=== PATIENT | female | born 1945 | race Caucasian/White ===

== ENCOUNTER 2020-04-14 07:35 | Outpatient (REF) | payer MEDICARE, SELFPAY ==
--- NOTE | 2020-04-14 07:41 | MM_ITS ---
EXAMINATION: MM DIAGNOSTIC DIGITAL BREAST TOMOSYNTHESIS, LEFT Targeted left breast ultrasound CLINICAL INFORMATION: Left breast pain at 2:00 The lifetime risk of breast cancer based on the Tyrer-Cuzick Model is 3.9%. COMPARISON: Mammography: September 18, 2019 and studies dating back to August 31, 2011 TECHNIQUE: Digital breast tomosynthesis is performed in both the craniocaudal and mediolateral oblique views along with computer-aided detection (CAD). Synthesized 2D images are generated from the tomosynthesis. Targeted left breast ultrasound FINDINGS: There are scattered areas of fibroglandular density (ACR BI-RADS breast composition Category b). There are no significant masses, abnormal calcifications, or other abnormalities. Targeted left breast ultrasound to region of pain was then performed. No abnormal cystic or solid mass was identified. No region of distal sound shadowing is seen. No edematous change within the skin is noted. Results are discussed with the patient at time of visit. MM/MM tomosynthesis diagnostic LT IMPRESSION: There are no significant changes from prior study. ASSESSMENT: BI-RADS 1: Negative RECOMMENDATION: Routine annual mammography screening, due in 6 months. Clinical follow-up for left breast pain. This patient's information was entered into a reminder system with a target due date for their next mammogram.
--- NOTE | 2020-04-14 07:42 | US_ITS ---
EXAMINATION: US DIAGNOSTIC ULTRASOUND BREAST, LEFT CLINICAL INFORMATION: Left breast pain 2:00 position. COMPARISON: Mammography of same day and mammography dating back to August 31, 2011. TECHNIQUE: Ultrasound of the breast is performed with real-time morrissey scale imaging and color Doppler. FINDINGS: Targeted left breast ultrasound to region of pain was then performed. No abnormal cystic or solid mass was identified. No region of distal sound shadowing is seen. No edematous change within the skin is noted. Results are discussed with the patient at time of visit. US/US breast LT limited IMPRESSION: There are no significant changes from prior study. ASSESSMENT: BI-RADS 1: Negative RECOMMENDATION: Routine annual mammography screening, due in 6 months. Clinical follow-up for left breast pain.
== END 2020-04-14 07:36 | disposition home or self-care (01) ==
LOC: HO.MAMMO 07:35
PROVIDERS: PCP Internal Medicine; Visit Provider Internal Medicine
DX: N64.4 Mastodynia (principal)
CPT/HCPCS: 76642; 77061; 77065

== ENCOUNTER 2020-12-13 08:30 | Day surgery (SDC) | payer MEDICARE, SELFPAY ==
[2020-12-08 10:15] VITALS: BMI 41.2
--- NOTE | 2020-12-13 08:24 | HO.ANESPROP2 ---
[facility] Past Medical History Medical History (Updated 12/08/20 @ 10:10 by Chantal Gonzalez RN) Depression Elevated cholesterol GERD (gastroesophageal reflux disease) HTN (hypertension) Large cell lymphoma Psoriatic arthritis Sleep apnea Status post insertion of nerve stimulator Uterine cancer Family History Family history of problems with anesthesia: No Surgical History Surgical History (Updated 12/08/20 @ 10:11 by Chantal Gonzalez RN) H/O colonoscopy History of bunionectomy History of esophagogastroduodenoscopy (EGD) History of pubovaginal sling Hx of hysterectomy Hx of lumbar discectomy History of Problems with Anesthesia: No Social History Social History Advance Directives: No Advance Directives Information Provided: Yes Meds Allergies Allergy/AdvReac Type Severity Reaction Status Date / Time adhesive tape [ADHESIVE TAPE] Allergy Intermediate BLISTERS Verified 12/13/20 08:46 ampicillin [Ampicillin] Allergy Mild HIVES Verified 12/13/20 08:46 Home Medications Medication Instructions Recorded Confirmed Last Taken Type amlodipine 10 mg tablet 1 tab PO DAILY 12/08/20 12/08/20 Unknown History aspirin 81 mg tablet,delayed 81 mg PO DAILY 12/08/20 12/08/20 Unknown History release bupropion HCl 150 mg 24 hr tablet, 1 tab PO QAM 12/08/20 12/08/20 Unknown History extended release chlorthalidone 25 mg tablet 1 tab PO DAILY 12/08/20 12/08/20 Unknown History folic acid 1 mg tablet 1 mg PO DAILY 12/08/20 12/08/20 Unknown History irbesartan 75 mg tablet 1 tab PO DAILY 12/08/20 12/08/20 Unknown History leucovorin calcium 10 mg tablet 1 tab PO DAILY 12/08/20 12/08/20 Unknown History methotrexate sodium 2.5 mg tablet 15 mg PO QWEEK 12/08/20 12/08/20 Unknown History metoprolol succinate 50 mg tab PO 12/08/20 Unknown History tablet,extended release 24 hr pravastatin 40 mg tablet 1 tab PO DAILY 12/08/20 12/08/20 Unknown History sulfasalazine 500 mg tablet 1 tab PO DAILY 12/08/20 12/08/20 Unknown History Exam Exam Date and Time: December 13, 2020 0824 Height,Weight and Vital Signs: Height 5 ft 2.5 in Weight 103.873 kg Airway Mallampati Class: III (Caps laterally) TM Dist: >3cm Neck ROM: Full Heart: rrr Lungs: cta Assessment and Plan Assessment Anesthesia Assessment: Anesthesia Plan Discussed and Chart Reviewed Final Anesthetic Review Family History of Problems with Anesthesia: No History of Problems with Anesthesia: No NPO: Yes ASA Class: III Final Preanesthetic Review: No Changes in Pt Med Stat, Meds/Allgs Chart Reviewed and Consent Obtained/Reviewed Patient Risk: Intermediate Procedure Risk: Intermediate Anesthetic Plan Anesthetic Plan: MAC: Disposition: Standard PACU
[2020-12-13] MEDS: Lactated Ringers 1,000 ML 50 ML IVCONT (09:00)
[2020-12-13 09:01] VITALS: BP 147/69; PULSE 58; RESP 18; TEMP 36.1; O2SAT 97; BMI 41.2
[2020-12-13 10:25] VITALS: BP 109/56; PULSE 64; RESP 14; TEMP 36.2; O2SAT 98
--- NOTE | 2020-12-13 10:26 | P.BOP_ITS ---
Brief Operative Note Date of Service: 12/13/20 Pre-op diagnosis: Screening Post-op diagnosis: other (Diverticulosis) Procedure: Colonoscopy to the cecum Surgeon: Orlando Fajardo Anesthesia: MAC Was an Rooming House Keeper used for this Procedure?: No Estimated blood loss (mL): 0 Pathology: none sent Condition: stable Disposition: PACU
--- NOTE | 2020-12-13 10:37 | OP_ITS ---
SURGEON: Orlando Fajardo MD INDICATIONS: The patient presents for evaluation of colorectal cancer screening, personal history of tubular adenoma of the colon, and family history of colon cancer. Full consent has been obtained from her for this, including risks of bleeding and perforation. PREOPERATIVE DIAGNOSIS: POSTOPERATIVE DIAGNOSIS: PROCEDURE PERFORMED: Colonoscopy to cecum. ESTIMATED BLOOD LOSS: COMPLICATIONS: ANESTHESIA: Monitored anesthesia care. ASSISTANTS: SPECIMENS: PREOPERATIVE DIAGNOSES: Colorectal cancer screening and personal history of tubular adenoma of the colon, family history of colon cancer. POSTOPERATIVE DIAGNOSES: Colorectal cancer screening and personal history of tubular adenoma of the colon, family history of colon cancer, diverticulosis and internal hemorrhoids. DESCRIPTION OF PROCEDURE: The patient was placed in the left lateral decubitus position. The digital rectal exam revealed no abnormalities. The Olympus video pediatric colonoscope was entered into the rectum and advanced to the cecum with the assistance of abdominal wall pressure. Once in the cecum, I did identify normal-appearing cecal pouch with appendiceal orifice and a normal-appearing ileocecal valve. The entire cecum and ileocecal valve appeared normal. The scope was then slowly withdrawn assessing all mucosal surfaces carefully. Preparation was excellent. I did not visualize any sign of polyps, colitis, nor angiodysplasia. There was a mild amount of sigmoid diverticulosis. In the rectum, scope was retroflexed visualizing small internal hemorrhoids, but no other pathology. The rectal mucosa appeared normal. The scope was straightened out and withdrawn from the patient. She tolerated the procedure well and was returned to the recovery area in stable condition. IMPRESSION: 1. Diverticulosis. 2. Internal hemorrhoids. PLAN: The patient was advised that she could resume aspirin today. At this point given her age, this negative exam, a negative colonoscopy in 2016, and findings on her previous colonoscopies, I do not think she will need any further colonoscopies from a screening standpoint in the future. She will see me on a p.r.n. basis. This has been discussed with her . MD MARGY Chauhan/ALBA / [id number]
[2020-12-13 10:39] VITALS: BP 131/58; PULSE 65; RESP 16; O2SAT 95
== END 2020-12-13 11:27 | disposition home or self-care (01) ==
PROVIDERS: PCP Internal Medicine; Visit Provider Internal Medicine
PROC: 0DJD8ZZ Inspection of Lower Intestinal Tract, Via Natural or Artificial Opening Endoscopic (ICD-10-PCS; CPT 45378; principal; 2020-12-13 10:10)
DX: Z12.11 Encounter for screening for malignant neoplasm of colon (principal); Z86.010 Personal history of colon polyps; Z80.0 Family history of malignant neoplasm of digestive organs; K57.30 Diverticulosis of large intestine without perforation or abscess without bleeding; K64.8 Other hemorrhoids; K59.00 Constipation, unspecified; K21.9 Gastro-esophageal reflux disease without esophagitis; I10 Essential (primary) hypertension; L40.50 Arthropathic psoriasis, unspecified; G47.30 Sleep apnea, unspecified; C83.30 Diffuse large B-cell lymphoma, unspecified site; Z85.42 Personal history of malignant neoplasm of other parts of uterus; Z92.3 Personal history of irradiation; Z92.21 Personal history of antineoplastic chemotherapy; Z79.82 Long term (current) use of aspirin; Z79.899 Other long term (current) drug therapy; Z88.0 Allergy status to penicillin
CPT/HCPCS: G0105

== ENCOUNTER 2021-04-25 10:55 | Outpatient (REF) | payer MEDICARE, SELFPAY ==
--- NOTE | ~2021-04-25 | MM_ITS ---
EXAMINATION: MM SCREENING DIGITAL BREAST TOMOSYNTHESIS, BILATERAL CLINICAL INFORMATION: Screening. Asymptomatic. The lifetime risk of breast cancer based on the Tyrer-Cuzick Model is 4%. COMPARISON: Mammography: 04/14/2020, 09/18/2019, 06/07/2018, 06/05/2017 TECHNIQUE: Digital breast tomosynthesis is performed in both the craniocaudal and mediolateral oblique views along with computer-aided detection (CAD). Synthesized 2D images are generated from the tomosynthesis. FINDINGS: There are scattered areas of fibroglandular density (ACR BI-RADS breast composition Category b). There are no significant masses, abnormal calcifications, or other abnormalities. Parenchymal pattern is similar to prior studies. There is no developing density or architectural abnormality. The axilla and skin contours are unremarkable. No significant changes. MM/MM tomosynthesis screening BI IMPRESSION: No mammographic evidence of malignancy. ASSESSMENT: BI-RADS 1: Negative RECOMMENDATION: Routine annual mammography screening. This patient's information was entered into a reminder system with a target due date for their next mammogram.
== END 2021-04-25 10:56 | disposition home or self-care (01) ==
LOC: HO.MAMMO 10:55
PROVIDERS: Visit Provider Internal Medicine
DX: Z12.31 Encounter for screening mammogram for malignant neoplasm of breast (principal)
CPT/HCPCS: 77063; 77067

== ENCOUNTER 2022-05-08 11:04 | Outpatient (REF) | payer MEDICARE, SELFPAY ==
--- NOTE | ~2022-05-08 | MM_ITS ---
EXAMINATION: MM SCREENING DIGITAL BREAST TOMOSYNTHESIS, BILATERAL CLINICAL INFORMATION: Screening. Asymptomatic. The lifetime risk of breast cancer based on the Tyrer-Cuzick Model is 3.6%. COMPARISON: Mammography: April 25, 2021 and studies dating back to January 14, 2016 TECHNIQUE: Digital breast tomosynthesis is performed in both the craniocaudal and mediolateral oblique views along with computer-aided detection (CAD). Synthesized 2D images are generated from the tomosynthesis. FINDINGS: There are scattered areas of fibroglandular density (ACR BI-RADS breast composition Category b). There are no significant masses, abnormal calcifications, or other abnormalities. MM/MM tomosynthesis screening BI IMPRESSION: No significant changes from prior exam. ASSESSMENT: BI-RADS 1: Negative RECOMMENDATION: Routine annual mammography screening. This patient's information was entered into a reminder system with a target due date for their next mammogram.
== END 2022-05-08 11:05 | disposition home or self-care (01) ==
LOC: HO.MAMMO 11:04
PROVIDERS: PCP Internal Medicine; Visit Provider Internal Medicine
DX: Z12.31 Encounter for screening mammogram for malignant neoplasm of breast (principal)
CPT/HCPCS: 77063; 77067

== ENCOUNTER 2022-08-24 10:45 | Outpatient (REF) | payer MEDICARE, SELFPAY ==
--- NOTE | ~2022-08-24 | MM_ITS ---
EXAMINATION: BONE DENSITOMETRY CLINICAL INDICATION: Osteoporosis. Osteopenia. COMPARISON: Previous BD dated 09/18/2019 and baseline BD dated 12/29/2014. TECHNIQUE: Using a ClearContext DXA System (software version: 13.1) manufactured by [employer], dual-energy x-ray absorptiometry was performed of the lumbar spine and left hip. The images are of good technical quality. Summary results are attached. FINDINGS: AP SPINE L1-L4: Current: BMD 1.468 g/cm2, Z-score 3.1, T-score 2.4, normal, 2.2% increase from previous, 6.8% increase from baseline (<5% change is not significant). Prior: BMD 1.436 g/cm2. Baseline: BMD 1.374 g/cm2. LEFT FEMUR, NECK: Current: BMD 0.905 g/cm2, Z-score 0.3, T-score -1.0, normal. Prior: BMD 0.958 g/cm2. Baseline: BMD 0.927 g/cm2. LEFT FEMUR, TOTAL: Current: BMD 1.161 g/cm2, Z-score 2.2, T-score 1.2, normal, 0.9% increase from previous, 5.1% decrease from baseline (<5% change is not significant). Prior: BMD 1.151 g/cm2. Baseline: BMD 1.224 g/cm2. IDENTIFIED RISK FACTORS: History adult fracture. Osteoporosis. Height loss. Menopause. Hysterectomy. Bilateral oophorectomy. HISTORY OF FRACTURE: Lower leg. MEDICATIONS: Calcium supplement and/or multivitamin. Vitamin D. MM/XR DEXA axial skeleton IMPRESSION: 1. DIAGNOSIS: Normal bone density based on the lowest T-score value of -1.0 in the femoral neck applying World Health Organization criteria. 2. 10-YEAR FRACTURE RISK PREDICTION, FRAX: According to the guidelines, FRAX calculation should only be performed on patients in the osteopenia bone density category.?Therefore, FRAX was not performed on this patient.? 3. Treatment Recommendations: NOF guidelines recommend consideration for treatment in postmenopausal women and men age 50 and older presenting with the following: -A hip or vertebral (clinical or morphometric) fracture. -T-score less than or equal to -2.5 at the femoral neck or spine after appropriate evaluation to exclude secondary causes. -Low bone mass at the hip or spine and a 10-year fracture probability by FRAX of greater than or equal to 3% for hip fracture or greater than or equal to 20% for major osteoporotic fracture based on the [place] adapted WHO algorithm. 4. Other Recommendations: All treatment decisions require clinical judgment and consideration of individual patient factors, including patient preferences, comorbidities, previous drug use, risk factors not captured in the FRAX model (e.g. frailty, falls, vitamin D deficiency, increased bone turnover, interval significant decline in bone density) and possible under or overestimation of fracture risk by FRAX. FUTURE SCAN RECOMMENDATION: People with diagnosed cases of osteoporosis or at high risk for fracture should have regular bone mineral density tests. For patients eligible for Medicare, routine testing is allowed once every 2 years. The testing frequency can be increased to one year for patients who have rapidly progressing disease, those who are receiving or discontinuing medical therapy to restore bone mass, or have additional risk factors.
== END 2022-08-24 10:46 | disposition home or self-care (01) ==
LOC: HO.MAMMO 10:45
PROVIDERS: PCP Internal Medicine; Visit Provider Internal Medicine
DX: Z13.820 Encounter for screening for osteoporosis (principal); Z78.0 Asymptomatic menopausal state
CPT/HCPCS: 77080

== ENCOUNTER 2023-05-09 11:46 | Outpatient (REF) | payer MEDICARE, SELFPAY ==
--- NOTE | ~2023-05-09 | MM_ITS ---
EXAMINATION: MM SCREENING DIGITAL BREAST TOMOSYNTHESIS, BILATERAL CLINICAL INFORMATION: Screening. Asymptomatic. COMPARISON: Mammography: This study is compared with prior exams dating back to to 2019. TECHNIQUE: Digital breast tomosynthesis is performed in both the craniocaudal and mediolateral oblique views along with computer-aided detection (CAD). Synthesized 2D images are generated from the tomosynthesis. FINDINGS: There are scattered areas of fibroglandular density (ACR BI-RADS breast composition Category b). There are no significant masses, abnormal calcifications, or other abnormalities. MM/MM tomosynthesis screening BI IMPRESSION: No mammographic evidence of malignancy. ASSESSMENT: BI-RADS BI-RADS 1 - Negative RECOMMENDATION: Routine annual mammography screening. 1 year F/U This examination should not preclude the clinical evaluation of a suspicious palpable abnormality. This patient's information was entered into a reminder system with a target due date for their next mammogram.
== END 2023-05-09 11:47 | disposition home or self-care (01) ==
LOC: HO.MAMMO 11:46
PROVIDERS: PCP Internal Medicine; Visit Provider Internal Medicine
DX: Z12.31 Encounter for screening mammogram for malignant neoplasm of breast (principal)
CPT/HCPCS: 77063; 77067

== ENCOUNTER → 2023-05-09 12:00 | Outpatient (BNV) | payer MEDICARE, SELFPAY | PROVIDERS: PCP Internal Medicine; Visit Provider Radiology Diagnostic Radiology | DX: Z12.31 Encounter for screening mammogram for malignant neoplasm of breast (principal) | CPT/HCPCS: 77063; 77067 ==

== ENCOUNTER 2024-05-15 13:38 | Outpatient (REF) | payer MEDICARE, SELFPAY ==
--- OUTSIDE RECORDS SUMMARY | 2024-05-15 16:35 | XMS_ITS | Encounter Summary ---
Author Organization [facility] Address [address] [place] [address] Care Team Providers Care Wildlife Management Professor Name Role Phone Shade Lafleur DO Primary Care Provider [phone] Reason for Visit * Imaging (Routine) - Closed Specialty Diagnoses / Procedures Referred By Yoni mena Referred To Contact Cardiology Diagnoses Palpitations Aortic ectasia, unspecified site (CMS/HCC) Procedures Transthoracic echocardiogram (TTE) complete with PRN contrast, bubble, strain, and 3D order panel WV TTE W 2D IMAGE COMPLETE W DOPPLER ECHO & COLOR FLOW DOPPLER ECHO WV DELIFNA 2D COMPLETE W/CONTRAST OR W & WO CONTRAST WITH DOPPLER Shade Lafleur DO [address] [place] [phone] Phone: tel: fax: [facility] Referral ID Status Reason Start Date Expiration Date Visits Re quested Visits Authorized [id number] Closed 02/20/2024 02/19/2025 1 1 Encounter Details Date Type Department Care Team (Latest Contact Info) Description 05/08/2024 10:00 AM EST Ancillary Procedure [facility] [address] [place] [address] [place] [id number] Palpitations; Aortic ectasia, unspecified site (CMS/HCC) Social History Tobacco Use Types Packs/Day Years Used Date Smoking Tobacco: Never Smokeless Tobacco: Never Alcohol Use Standard Drinks/Week Comments No 0 (1 standard drink = 0.6 oz pur e alcohol) Comments Unknown Sex and Gender Information Value Date Recorded Sex Assigned at Not on file Legal Sex Female 5:59 PM EST Gender Identity Not on file Sexual Orientation Not on file documented as of this encounter Last Filed Vital Signs Vital Sign Reading Time Taken Comments Blood Pressure 124/70 05/08/2024 9:47 AM EST Pulse - - Temperature - - Respiratory Rate - - Oxygen Saturation - - Inhaled Oxygen Concentration - - Weight 97.1 kg (214 lb) 05/08/2024 9:47 AM EST Height 160 cm (5' 3 ) 05/08/2024 9:47 AM EST Body Mass Index 37.91 05/08/2024 9:47 AM EST documented in this encounter Plan of Treatment Pending Results Name Type Priority Associated Diagnoses Date/Time Transthoracic echocardiogram (TTE) complete with PRN contrast, bubble, strain, and 3D order panel Echocardiography Routine Palpitations Aortic ectasia, unspecified site ([facility]/HCC) 05/08/2024 10:34 AM EST documented as of this encounter Visit Diagnoses Diagnosis Palpitations Aortic ectasia, unspecified site ([facility]) Aortic ectasia, unspecified site documented in this encounter Care Teams Wildlife Management Professor Relationship Specialty Start Date End Date Shade Lafleur DO [address] [place] [phone] PCP - General Internal Medicine 03/26/20 documented as of this encounter
--- OUTSIDE RECORDS SUMMARY | 2024-05-15 16:35 | XMS_ITS | Continuity of Care Document ---
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 Role Phone Shade Lafleur DO Primary Care Physician Encounter 05/05/24 - 05/12/24 [facility] [address], [address] [place] [address]- Attending Physician: Adeola Lorenzana DO Admitting Physician: Adeola Lorenzana DO Referring Physician: Adeola Lorenzana DO Encounter Type: OutPatient One Time Allergies, Adverse Reactions, Alerts Substance Criticality Severity Reaction Reaction Severity Status ampicillin High criticality Moderate Ac tive Medications buPROPion 150 mg/24 hours (XL) oral tablet, extended release 1 tablet = 150 mg, By Mouth, Every 24 hours, # 30 tablet, 0 Refills, Maintenance, 11/19/23 1:15:00 PMEDT, ER Tablet, Partial fill upon patient request if the prescription is for a schedule II opioid drug. Start Date: 11/19/23 Status: Ordered Quantity: 30.0 Unit: tablet Repeat number: 1 Ezetimibe = 10 mg, By Mouth, Daily, 0 Refills, Maintenance, 05/07/24 10:01:00 AM EST, Partial fill upon patient request if the prescription is for a schedule II opioid drug. Start Date: 05/07/24 Status: Ordered Repeat number: 1 irbesartan 300 mg oral tablet 1 tablet = 300 mg, By Mouth, Daily, # 30 tablet, 0 Refills, Maintenance, 11/19/23 1:16:00 PM EDT, Tablet, Partial fill upon patient request if the prescription is for a schedule II opioid drug. Start Date: 11/19/23 Status: Ordered Quantity: 30.0 Unit: tablet Repeat number: 1 ketoconazole 2% topical cream 1 application, Topically, 2 times a day, # 60 Gm, 0 Refills, Maintenance, 05/07/24 10:01:00 AM EST, Cream, Partial fill upon patient request if the prescription is for a schedule II opioid drug. Start Date: 05/07/24 Stop Date: 06/04/24 Status: Ordered Quantity: 60.0 Unit: g Repeat number: 1 Leucovorin 0 Refills, Maintenance, 05/07/24 10:01:00 AM EST, Partial fill upon patient request if the prescription is for a schedule II opioid drug. Start Date: 05/07/24 Status: Ordered Repeat number: 1 Methotrexate Sodium, Preservative Free 25 mg/mL injectable solution 0 Refills, Maintenance, 11/19/23 1:15:00 PM EDT, Partial fill upon patient request if the prescription is for a schedule II opioid drug. Start Date: 11/19/23 Status: Ordered Repeat number: 1 Metoprolol Succinate ER 50 mg oral tablet, extended release 1 tablet = 50 mg, By Mouth, Daily, # 30 tablet, 0 Refills, Maintenance, 11/19/23 1:16:00 PM EDT, ER Tablet, Partial fill upon patient request if the prescription is for a schedule II opioid drug. Start Date: 11/19/23 Status: Ordered Quantity: 30.0 Unit: tablet Repeat number: 1 NIFEdipine (Eqv-Procardia XL) 60 mg oral tablet, extended release 1 tablet = 60 mg, By Mouth, Daily, # 30 tablet, 0 Refills, Maintenance, 11/19/23 1:16:00 PM EDT, ER Tablet, Partial fill upon patient request if the prescription is for a schedule II opioid drug. Start Date: 11/19/23 Status: Ordered Quantity: 30.0 Unit: tablet Repeat number: 1 ondansetron 4 mg oral tablet, disintegrating 1 tablet = 4 mg, By Mouth, Once, PRN as needed for nausea/vomiting, # 20 tablet, 0 Refills, Soft Stop, 06/16/23 11:34:00 AM EDT, DIS Tablet, [id number], Partial fill upon patient request if the prescription is for a schedule II opioid drug., 158, cm, 06/06/23 14:25:00 EDT, Height Start Date: 06/16/23 Status: Ordered Quantity: 20.0 Unit: tablet Repeat number: 1 pravastatin 40 mg oral tablet 1 tablet = 40 mg, By Mouth, Daily, # 30 tablet, 0 Refills, Maintenance, 11/19/23 1:15:00 PM EDT, Tablet, Partial fill upon patient request if the prescription is for a schedule II opioid drug. Start Date: 11/19/23 Status: Ordered Quantity: 30.0 Unit: tablet Repeat number: 1 Skyrizi 0 Refills, Maintenance, 05/07/24 10:01:00 AM EST, Partial fill upon patient request if the prescription is for a schedule II opioid drug. Start Date: 05/07/24 Status: Ordered Repeat number: 1 spironolactone 25 mg oral tablet 25 mg, 1, tablet, By Mouth, Daily, # 30 tablet, Refills 0, Maintenance, 11/19/23 1:16:00 PM EDT, Partial fill upon patient request if the prescription is for a schedule II opioid drug. Start Date: 11/19/23 Status: Ordered Quantity: 30.0 Unit: tablet Repeat number: 1 sulfaSALAzine 500 mg oral tablet 0 Refills, Maintenance, 11/19/23 1:15:00 PM EDT, Partial fill upon patient request if the prescription is for a schedule II opioid drug. Start Date: 11/19/23 Status: Ordered Repeat number: 1 Voltaren By Mouth, 0 Refills, Maintenance, 05/07/24 10:01:00 AM EST, Partial fill upon patient request if theprescription is for a schedule II opioid drug. Start Date: 05/07/24 Status: Ordered Repeat number: 1 Problem List Condition Confirmation Course Effective Dates Status [facility] atus Informant COVID-19 1 Confirmed 11/21/23 Active HLD (hyperlipidemia) Confirmed Active HTN (hypertension) Confirmed Active RAYRAY (obstructive sleep apnea) Confirmed Active Psoriasis Confirmed Active Psoriatic arthritis Confirmed Active Severe obesity (BMI 35.0-39.9) with comorbidity Confirmed Active Urinary incontinence Confirmed Active 1Problem added by Discern Expert Results Radiology Reports * Exam Date Time Procedure Performing Provider Status 05/05/24 3:21 PM US Breast Right Limited Connie Melgar; Auth (Verified) Notes: (US Breast Right Limited) Reason For Exam: N64.59 Other signs and symptoms in breast RESULT: US Breast Right Limited PROCEDURE: MM Digital Mammo Unilat Right, US Breast Right Limited INDICATION: Right nipple retraction. COMPARISON: Dating back to 04/25/2021. TECHNIQUE: Routine images of both breasts with 3-D tomography computer-aided detection. Additional diagnostic images right breast. Targeted right breast ultrasound. FINDINGS: Density: There are scattered areas of fibroglandular density. There is no concerning mass. There is no suspicious grouping of microcalcifications. There is nipple retraction which is best demonstrated on the spot cc view with nipple in profile. In retrospect questionable retraction may have been present on the prior screening exam of 05/01/2023 but is clearly a new finding since the examinations of 2021 and 2022. I do not see any abnormality directed posterior to the nipple on mammography. Other than nipple retraction, there is no architectural distortion. Ultrasound examination was performed on the retroareolar region on the right. No mass or fluid collection is identified. One duct is identified which measures only 2 mm in diameter, not grossly enlarged, and it is anechoic and without internal abnormality. IMPRESSION: 1. There is retraction of the right nipple which is new since at least 2022. 2. I do not see a significant mammographic or ultrasound abnormality underlying the retracted rightnipple. 3. Further evaluation of the finding on physical examination should be a clinical basis. RECOMMENDATION: Clinical follow-up and management BI-RADS: 2 (Benign) Lay letter mailed to patient WSN: [id number] Ordering Physician: Adeola Lorenzana Dictated By: Rio Jacques MD Dictated Date/Time: 05/05/24 4:08 pm Reviewed By: Rio Jacques MD Signed By: Rio Jacques MD Signed Date/Time: 05/05/24 4:08 pm Transcribed By: JONO Transcribed Date/Time: 05/05/24 4:01 pm * Exam Date Time Procedure Performing Provider Status 05/05/24 2:32 PM MM Digital Mammo Unilat Right Sterling King; Auth (Verified) Notes: (MM Digital Mammo Unilat Right) Reason For Exam: N64.59 Other signs and symptoms in breast RESULT: MM Digital Mammo Unilat Right PROCEDURE: MM Digital Mammo Unilat Right, US Breast Right Limited INDICATION: Right nipple retraction. COMPARISON: Dating back to 04/25/2021. TECHNIQUE: Routine images of both breasts with 3-D tomography computer-aided detection. Additional diagnostic images right breast. Targeted right breast ultrasound. FINDINGS: Density: There are scattered areas of fibroglandular density. There is no concerning mass. There is no suspicious grouping of microcalcifications. There is nipple retraction which is best demonstrated on the spot cc view with nipple in profile. In retrospect questionable retraction may have been present on the prior screening exam of 05/01/2023 but is clearly a new finding since the examinations of 2021 and 2022. I do not see any abnormality directed posterior to the nipple on mammography. Other than nipple retraction, there is no architectural distortion. Ultrasound examination was performed on the retroareolar region on the right. No mass or fluid collection is identified. One duct is identified which measures only 2 mm in diameter, not grossly enlarged, and it is anechoic and without internal abnormality. IMPRESSION: 1. There is retraction of the right nipple which is new since at least 2022. 2. I do not see a significant mammographic or ultrasound abnormality underlying the retracted rightnipple. 3. Further evaluation of the finding on physical examination should be a clinical basis. RECOMMENDATION: Clinical follow-up and management BI-RADS: 2 (Benign) Lay letter mailed to patient WSN: [id number] Ordering Physician: Adeola Lorenzana Dictated By: Rio Jacques MD Dictated Date/Time: 05/05/24 4:08 pm Reviewed By: Rio aJcques MD Signed By: Rio Jacques MD Signed Date/Time: 05/05/24 4:08 pm Transcribed By: JONO Direct Chill Caster Date/Time: 05/05/24 4:01 pm Birads: Social History Social History Type Response Smoking Status Never (less than 100 in lifetime) entered on: 05/07/24 Sex Sex Representation Female (finding) Patient Care team information Care Team Personnel Name: Shade Lafleur DO Position: [facility] Outreach Member Role: PCP Address: [address] [place], [place] [id number] [place], [place] [address] Telecom: Care Team Related Persons Name: ROLAND MIXON Insurance Providers Guarantor name: MINAL MIXON [facility]bit [facility] Information #: 2 Payer: MEDEX Member Number: [id number] Policy Number: NA Group Number: NA Health Plan Information #: 1 Payer: MEDICARE PART B OUTPT Member Number: [id number] Policy Number: NA Group Number: NA
--- OUTSIDE RECORDS SUMMARY | 2024-05-15 16:35 | XMS_ITS | Patient Health Record ---
Author Organization [facility] Address [address] [place] [id number] Care Team Providers Care Voip Network Technician Name Role Phone Miquel ARENAS, Shade Primary Care Provider Orlando Chinchilla [phone] Allergies Allergen (clinical drug ingredient) Drug/Non Drug Allergy documented on EMR Reaction Allergy Type Onset Date Status ampicillin Ampicillin Unknown Drug Allergy Activ e Reason For Referral No Information Medications Medication SIG (Take, Route, Frequency, Duration) Notes Start Date End Date Status Folic Acid 1 MG 1 tablet Orally Once a day Active Flaxseed Oil 1400mg 1 Orally qd Active amLODIPine Besylate 10 MG 1 tablet Orall y Once a day for 30 day(s) Active Pravastatin Sodium 40 MG 1 tablet Orally Once a day Active Ranitidine HCl Activ e Chlorthalidone 25 MG Oral for 90 Active sulfaSALAzine 500 MG 1 tablet Orally Onc e a day for 30 day(s) Active Metoprolol Succinate ER 50 MG Oral for 90 Active buPROPion HCl ER (XL) 150 MG 1 tablet in the morning Orally Once a day Active Leucovorin Calcium 10 MG 1 tablet Orally for 30 day(s) Active Methotrexate 2.5 MG 6 Orally per week Active Baby Aspirin Active Irbesartan 75 MG Oral for 90 A ctive Loratadine 10 MG 1 tablet Orally Once a day for 30 day(s) Active Calcium + D3 600-800 MG-UNIT 1 tablet wi th a meal Orally Once a day for 30 day(s) Active Immunizations Vaccine Route Administration Date Status Comme nts Flu vaccine no Preserv 3 and > Unknown 12/23/2013 Admin istered Flu vaccine no Preserv 3 and > Unknown 12/15/2014 Admin istered Influenza Unknown 12/11/2019 Administered Problems Problem Type SNOMED Code ICD Code Onset Dates Problem Status W/U Status Risk Notes Problem 054454109 Encounter for screening for malignant neoplasm of colon (Z12.11) Active confirmed Problem 619663184 History of adenomatous polyp of colon (Z86.010) Active confirmed Problem History of polyp of colon (situation) (240177783) Personal history of colonic polyps (Z86.010) Active confirmed Problem Screening for malignant neoplasm of rectum (807460418) Encounter for screening for malignant neoplasm of rectum (Z12.12) Active confirmed Problem 08510580 Constipation, unspecified constipation type (K59.00) Active confirmed Problem Diverticulosis of colon (354485829) Diverticulosis of colon (K57.30) Active confirmed Plan Of Treatment Future Test Test Name Order Date COLONOSCOPY 09/21/2015 COLONOSCOPY 11/10/2020 Insurance Providers Payer Name Payer Address Payer Phone Subscriber Number Group Number Insured Name Patient Relationship to Insured Coverage Start Date Coverage End Date MEDICARE OF [employer] [address] [place] [address] [id number] MINAL MIXON Self - patient is the insured MEDEX ATTN CLAIMS [address] [place] [address] [id number] MINAL MIXON Self - patient is the insured Medical (General) History Medical History History ICD Code Gastroesophageal reflux dise ase (GERD)-her most recent endoscopy was in 2014 with the finding of a small hiatal hernia but no significant esophagitis--gastric biopsies were negative for H. pylori Hyperlipidemia Depression Hypertension Colon polyps-a tubular adeno david was removed in April 2004--she had a negative colonoscopy 1998 and August of 2009. Denies SC,DM,CVA,Lung disease,renal dise ase Psoriatic arthritis--[facility] Neg cardiac catheterization Urinary incontinence-has an Interstim Diffuse large-cell lymphoma diagnosed in 04/2013-followed by Dr. Jacobs--finished with chemo treatments in 09/2013--she now goes to [facility]--having a PET-CT and F/U OV in 11/2015 Negative abdominal ultrasound in 2004 Sleep apnea--uses CPAP Negative screening colonoscopy in 6 Uterine cancer Surgical History Surgery Date(Month/Year) Lower back surgery Bunion Left index finger Interstim for the urinary bladder x 2 [place] for chemo--removed Fallopian tubes and ovaries removed--[place] ign disease 2016 Hysterectomy with radiation 2020
--- OUTSIDE RECORDS SUMMARY | 2024-05-15 16:35 | XMS_ITS | Clinical Summary ---
Author Organization [address] [place] [address] Address [address] [place] [address] Phone Care Team Providers Care Desk Assistant Name Role Phone Shade Lafleur DO Primary Care Provider [phone] Allergies Active Allergy Reactions Criticality Noted Date Comments Ampicillin 04/30/2020 Other Reaction(s): Hives/Urticaria Latex 04/30/2020 Other Reaction(s): Rash/Dermatitis Medications spironolactone (ALDACTONE) 25 mg tablet Take 25 mg by mouth daily. Active metoprolol succinate (TOPROL-XL) 50 mg 24 hr tablet Take 1 Tablet by mouth every evening. 2 Active NIFEdipine CC (ADALAT CC) 60 mg 24 hr tablet Take 1 Tablet by mouth every evening. 2 Active irbesartan (AVAPRO) 300 mg tablet Take 1 tablet (300 mg total) by mouth 1 (one) time each day. 2 Active RANITIDINE HCL ORAL Take 20 mg by mouth 2 times daily. Active aspirin 81 mg EC tablet Take 1 tablet (81 mg total) by mouth 1 (one) time each day. 1 Active sulfaSALAzine (AZULFIDINE) 500 mg tablet Take 3 Tabs by mouth 2 times daily. Active ketoconazole (NIZORAL) 2 % cream Apply topically as needed. Active methotrexate, PF, 25 mg/0.4 mL auto-injector Inject 9 mL into the skin once a week. On hold Active calcium carbonate-nicki calciferol 500 mg-10 mcg (400 unit) per tablet Take 1 tablet by mouth 1 (one) time each day. Active metroNIDAZOLE (METROCREAM) 0.75 % cream Apply topically as needed. Active leucovorin 10 mg tablet Take 10 mg by mouth every 7 days. Active FLAXSEED OIL ORAL Take by mouth daily. Except sundays Active folic acid (FOLVITE) 800 mcg tablet Take 1,200 mg by mouth daily. Active pravastatin (PRAVACHOL) 40 mg tablet Take 1 tablet (40 mg total) by mouth 1 (one) time each day. Active buPROPion SR (WELLBUTRIN SR) 150 mg 12 hr tablet Take 150 mg by mouth daily. Active Active Problems Problem Noted Date Diagnosed Date Edema 08/18/2021 Overview (01/30/2024): Last Assessment & Plan: The patient was found to have mild bilateral lower extremity edema. Previous echocardiogram showed a normal biventricular function. We had a conversation about the possible etiologies of her lower extremity edema. On the one hand, she may be experiencing lower extremity edema secondary to the use of her nifedipine. On the other hand, we also want to consider the possibility of underlying venous insufficiency. As such, we will schedule the patient for a lower extremity venous insufficiency study. Aortic insufficiency 08/11/2020 Overview (01/30/2024): Last Assessment & Plan: The patient was noted to have mild aortic insufficiency on her recent echocardiogram done in May 2020. We will repeat her echocardiogram in 3 to 5 years to evaluate for any progression in her aortic insufficiency. Dyspnea 05/04/2020 Overview (01/30/2024): Last Assessment & Plan: The patient continues to complain of shortness of breath. She denies any recent change in her shortness of breath. Previous nuclear stress test did not show any clear evidence of ischemia. Echocardiogram showed a normal biventricular function with evidence of mild aortic insufficiency that is unlikely to be the cause of her shortness of breath. As such, at this time, we will proceed with a pulmonary function test to evaluate for any underlying pulmonary disease as a cause of her symptoms. Hypertension 05/04/2020 Overview (01/30/2024): Last Assessment & Plan: The patient has a history of arterial hypertension. The patient's blood pressure today was noted to be well controlled. We'll continue the current antihypertensive medication regimen. Hyperlipidemia 04/30/2020 Overview (01/30/2024): Last Assessment & Plan: The patient has a history of hyperlipidemia. She is currently on pravastatin 40 mg orally daily. Last lipid panel in May 2021 showed an LDL of 107. We will continue her current therapy. IGT (impaired glucose tolerance) 04/30/2020 Palpitations 04/30/2020 Overview (01/30/2024): Last Assessment & Plan: The patient has been experiencing episodes of palpitations. She recently underwent a Holter monitor that did not show any evidence of arrhythmias. Nevertheless, the patient did not have any palpitations during the monitoring period. As such, will order a 30-day ambulatory electrocardiographic monitor to evaluate for any underlying arrhythmias as a cause of her palpitations. Also, will order an echocardiogram to rule out any underlying structural heart disease. PSVT (paroxysmal supraventricular tachycardia) 0 04/30/2020 Encounters Date Type Department Care Team Description 05/08/2024 10:00 AM EST Ancillary Procedure [facility] [address] [facility] [address] [place] [address] Palpitations; Aortic ectasia, unspecified site ([facility]) from Last 3 Months Immunizations Name Administration Dates Next Due Pfizer SARS-CoV-2 COVID-19, mRNA, LNP-S, preservative free 12/23/2020,06/25/2020,06/04/2020 Surgical History Surgery Date Site/Laterality Comments OTHER SURGICAL HISTORY 2003 PROCEDURE: BONE MARROW BIOPSY CARDIAC CATHETERIZATION 2004 PROCEDURE: HISTORICAL CARDIAC CATH OTHER SURGICAL HISTORY 1999 PROCEDURE: HISTORY OTHER; COMMENT: L3,L4 Diskectomy OTHER SURGICAL HISTORY 1998 PROCEDURE: HISTORY OTHER; COMMENT: Bunionectomy OTHER SURGICAL HISTORY 1984 PROCEDURE: HISTORY OTHER; COMMENT: Left Index finger repair OTHER SURGICAL HISTORY 01/2013 PROCEDURE: HISTORY OTHER; COMMENT: Bladder stimulator placement (Dr. 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 Nik Chowdary) Medical History Medical History Date Comments Palpitations 04/30/2020 DX:Palpitations PSVT (paroxysmal supraventri cular tachycardia) ([facility]) 04/30/2020 DX:PSVT (paroxysmal supraven tricular tachycardia) ([facility]) Hyperlipidemia 04/30/2020 DX:Hyperlipidemi a IGT (impaired glucose tolerance) 04/30/2020 DX:IGT (impaired glucose tolerance) Rosacea DX:Rosacea Sleep apnea DX:Sleep apnea Depression DX:Depression GERD (gastroesophageal reflux disease) DX:GERD (gastroesophageal reflux disease) Psoriatic arthritis (CMS/HCC) DX :Psoriatic arthritis ([facility]) History of Hodgkin's lymphoma DX :History of Hodgkin's lymphoma; COMMENT: tx in 2013 Family History Medical History Relation Name Comments Arthritis Brother 1 CABG Brother 1 Heart failure Brother 1 Allergies Brother 2 Asthma Brother 2 CABG Brother 2 Colon polyps Brother 2 CABG Father Other: Heart Disease Father CABG Mother Colon cancer Mother Other: CAD Mother Other: Hyperlipidemia Mother Other: Lymphoma Mother Other: Thyroid disease Mother Relation Name Status Comments Brother 1 Brother 2 Father Mother Social History Tobacco Use Types Packs/Day Years Used Date Smoking Tobacco: Never Smokeless Tobacco: Never Alcohol Use Standard Drinks/Week Comments No 0 (1 standard drink = 0.6 oz pur e alcohol) Comments Unknown Sex and Gender Information Value Date Recorded Sex Assigned at Not on file Legal Sex Female 5:59 PM EST Gender Identity Not on file Sexual Orientation Not on file Obstetrics History Last Filed Vital Signs Vital Sign Reading Time Taken Comments Blood Pressure 124/70 05/08/2024 9:47 AM EST Pulse 67 08/18/2021 8:54 AM EDT Temperature - - Respiratory Rate - - Oxygen Saturation - - Inhaled Oxygen Concentration - - Weight 97.1 kg (214 lb) 05/08/2024 9:47 AM EST Height 160 cm (5' 3 ) 05/08/2024 9:47 AM EST Body Mass Index 37.91 05/08/2024 9:47 AM EST Plan of Treatment Health Maintenance Due Date Last Done Comments DTaP,Tdap,and Td Vaccines (1 - Tdap) 1964 Depression Screening 02/18/2022 Falls Risk Assessment 02/18/2022 Medicare Annual Wellness Visit 02/18/2022 Osteoporosis Screening (Bone Density Screening) 02/18/2022 Social Influencers of Health Screening 02/18/2022 COVID-19 Vaccine ( season) 2023 12/23/2020, 06/25/2020, 06/04/2020 Hypertension/CHF/CAD Annual BMP Blood Test 10/18/2024 10/19/2023, 07/06/2020, 04/05/2020, Additional history exists Cholesterol Screening (Lipid Panel) 12/07/2026 12/07/2021 Hepatitis C Screening Completed 12/08/2015 Pneumococcal Vaccine: 50+ Years Completed 10/12/2016, 01/26/2016, 01/30/2014 Zoster Vaccines Completed 12/09/2017, 11/10, 09/14/2017 RSV Immunization Patients 60+ Years Old Completed 04/11/2023 Influenza Vaccine Completed 01/05/2024, , 01/08/2022, Additional history exists HIB Vaccines Aged Out No longer eligi ble based on patient's age to complete this topic HPV Vaccines Aged Out No longer eligi ble based on patient's age to complete this topic Hepatitis A Vaccines Aged Out No long er eligible based on patient's age to complete this topic Hepatitis B Vaccines Aged Out No long er eligible based on patient's age to complete this topic IPV Vaccines Aged Out No longer eligi ble based on patient's age to complete this topic MMR Vaccines Aged Out No longer eligi ble based on patient's age to complete this topic Meningococcal ACWY Vaccine Aged Out N o longer eligible based on patient's age to complete this topic Meningococcal B Vacine Aged Out No lo nger eligible based on patient's age to complete this topic RSV Immunization Patients Under 20 months Aged Out No longer eligible based on patient's age to complete this topic Varicella Vaccines Aged Out No longer eligible based on patient's age to complete this topic Procedures Procedure Name Priority Date/Time Associated Diagnosis Comments LIPID PANEL Routine 12/07/2021 from Last 3 Months or Most Recently Relevant to Health Maintenance Results * (ABNORMAL) Lipid panel (12/07/2021) LDL/HDL Ratio 5(A) 0 - 4 Triglycerides 171(A) 0 - 150 mg/dL Cholesterol 230(A) 0 - 200 mg/dL HDL 46 >=40 mg/dL LDL Cholesterol 150(A) 0 - 100 mg/dL Blood Venous blood specimen / Unknown us Historical Provider LAB BLOOD ORDERABLES Jadyn l Result from Last 3 Months or Most Recently Relevant to Health Maintenance Insurance MEDICARE [facility] Care Teams Desk Assistant Relationship Specialty Start Date End Date Shade Lafleur DO [address] [place] [phone] PCP - General Internal Medicine 03/26/20
== END 2024-05-15 13:39 | disposition home or self-care (01) ==
LOC: HO.MAMMO 13:38
PROVIDERS: PCP Internal Medicine; Visit Provider Internal Medicine
DX: Z12.31 Encounter for screening mammogram for malignant neoplasm of breast (principal)
CPT/HCPCS: 77063; 77067

== ENCOUNTER → 2024-05-15 13:45 | Outpatient (BNV) | payer MEDICARE, SELFPAY | PROVIDERS: PCP Internal Medicine; Visit Provider Internal Medicine | DX: Z12.31 Encounter for screening mammogram for malignant neoplasm of breast (principal) | CPT/HCPCS: 77063; 77067 ==

== ENCOUNTER 2024-08-26 10:59 | Outpatient (REF) | payer MEDICARE, SELFPAY ==
--- NOTE | ~2024-08-26 | MM_ITS ---
EXAMINATION: BONE DENSITOMETRY CLINICAL INDICATION: Lumbar surgeries. No back pain. COMPARISON: This is the patient's baseline examination. TECHNIQUE: Using a GI dual-energy x-ray absorptiometry was performed of the lumbar spine and left hip. The images are of good technical quality. Summary results are attached. FINDINGS: AP SPINE L1-L3: BMD 1.4, 0.5 g/cm2, Z-score 2.7, T-score 2.0, . LEFT FEMUR, NECK: BMD 1.112 g/cm2, Z-score 1.9, T-score 0.8 IDENTIFIED RISK FACTORS: None listed. HISTORY OF FRACTURE: None listed. MEDICATIONS: Calcium supplements and vitamin D. MM/XR DEXA axial skeleton IMPRESSION: 1. DIAGNOSIS: Normal bone mineral density based on the lowest T-score value of 2.0 in the lumbar spine applying World Health Organization criteria. 2. 10-YEAR FRACTURE RISK PREDICTION, FRAX: Major osteoporotic fracture 15% and hip fracture 2.4% . The fracture is minimally lower than reported patient has received treatment. 3. Treatment Recommendations: NOF guidelines recommend consideration for treatment in postmenopausal women and men age 50 and older presenting with the following: -A hip or vertebral (clinical or morphometric) fracture. -T-score less than or equal to -2.5 at the femoral neck or spine after appropriate evaluation to exclude secondary causes. -Low bone mass at the hip or spine and a 10-year fracture probability by FRAX of greater than or equal to 3% for hip fracture or greater than or equal to 20% for major osteoporotic fracture based on the [place] adapted WHO algorithm. FUTURE SCAN RECOMMENDATION: People with diagnosed cases of osteoporosis or at high risk for fracture should have regular bone mineral density tests. For patients eligible for Medicare, routine testing is allowed once every 2 years. The testing frequency can be increased to one year for patients who have rapidly progressing disease, those who are receiving or discontinuing medical therapy to restore bone mass, or have additional risk factors. Electronically signed by: William Hernandez MD 08/27/2024 02:26 PM EDT
--- OUTSIDE RECORDS SUMMARY | 2024-08-26 12:30 | XMS_ITS | Patient Health Record ---
Author Organization [facility] Address [address] [place] [phone] Care Team Providers Care Railroad Surveyor Name Role Phone Miquel ARENAS, Shade Primary Care Provider Orlando Chinchilla [phone] Allergies Allergen (clinical drug ingredient) Drug/Non Drug [...] Problem Status W/U Status Risk Notes Problem 295720197 Encounter for screening for malignant neoplasm of colon (Z12.11) Active confirmed Problem [id number] History of adenomatous polyp of colon (Z86.010) Active confirmed Problem History of polyp of colon (situation) (069875161) Personal history of colonic polyps (Z86.010) Active confirmed Problem Screening for malignant neoplasm of rectum (222886935) Encounter for screening for malignant neoplasm of rectum (Z12.12) Active confirmed Problem [id number] Constipation, unspecified constipation type (K59.00) Active confirmed Problem Diverticulosis of colon (300994280) Diverticulosis of colon (K57.30) Active confirmed Plan Of Treatment Future Test Test Name Order Date COLONOSCOPY 09/21/2015 COLONOSCOPY 11/10/2020 Insurance Providers Payer Name Payer Address Payer Phone Subscriber Number Group Number Insured Name Patient Relationship to Insured Coverage Start Date Coverage End Date MEDICARE OF [employer] [address] [place] [address] [id number] MINAL MIXON Self - patient is the insured [employer] CLAIMS [address] [place] [address] [id number] MINAL MIXON Self - patient is the [...] colonoscopy 1998 and August of 2009. Denies AL,DM,CVA,Lung disease,renal dise ase Psoriatic arthritis--[facility] Neg cardiac catheterization Urinary incontinence-has an Interstim Diffuse large-cell lymphoma diagnosed in 04/2013-followed by Dr. Jacobs--finished with chemo treatments in 09/2013--she now goes to the [facility]--having a PET-CT and F/U OV in 11/2015 Negative abdominal ultrasound in 2004 Sleep apnea--uses CPAP Negative screening colonoscopy in 6 Uterine cancer Surgical History Surgery Date(Month/Year) Lower back surgery Bunion Left index finger Interstim for the urinary bladder x 2 Port for chemo--removed Fallopian tubes and ovaries removed--tawana ign disease 2016 Hysterectomy with radiation 2020
== END 2024-08-26 11:00 | disposition home or self-care (01) ==
LOC: HO.MAMMO 10:59
PROVIDERS: PCP Internal Medicine; Visit Provider Internal Medicine
DX: Z13.820 Encounter for screening for osteoporosis (principal); Z78.0 Asymptomatic menopausal state
CPT/HCPCS: 77080

== ENCOUNTER → 2024-08-26 11:30 | Outpatient (BNV) | payer MEDICARE, SELFPAY | PROVIDERS: PCP Internal Medicine; Visit Provider Radiology Diagnostic Radiology | DX: E28.39 Other primary ovarian failure (principal) | CPT/HCPCS: 77080 ==